=== PATIENT | male | born 1970 | race Caucasian/White ===

== ENCOUNTER 2025-01-20 09:21 | Emergency (ER) | payer BC ==
[2025-01-20 10:19] LABS: #Basophils 0.09 10x3/uL (0.0-0.2); #Eosinophils 0.26 10x3/uL (0.0-0.5); #Monocytes 1.09 10x3/uL (0.0-1.1); #Neutrophils 7.49 10x3/uL (1.5-8.4); %Basophils 0.8 % (0.0-2.0); %Eosinophils 2.4 % (0.0-6.0); %Lymphocytes 18.4 % (18.0-47.0); %Monocytes 9.9 % (0.0-10.0); %Neutrophils 68.0 % (40.0-75.0); Hematocrit 47.4 % (38.8-50.0); Hemoglobin 15.5 g/dL (13.5-17.5); Mean Corpuscular Hemoglobin 27.7 pg (27.0-33.0); Mean Corpuscular Volume 84.6 fL (81.2-95.1); Platelet Count 234 10x3/uL (150-450); Red Blood Cell (RBC) Count 5.60 10x6/uL (4.32-5.72); White Blood Cell (WBC) Count 11.01 10x3/uL (3.5-10.5)
[2025-01-20 10:38] LABS: Anion Gap 12 mmol/L (10-20); BUN (Urea Nitrogen) 31 mg/dL (8.4-25.7); Calc. Creatinine Clearance 0 mL/min (70-130); Calcium 9.3 mg/dL (7.8-10.44); Carbon Dioxide 26 mmol/L (22-29); Chloride 106 mmol/L (98-107); Glucose 106 mg/dL (70-105); Potassium 4.3 mmol/L (3.5-5.1); Sodium 140 mmol/L (136-145)
[2025-01-20] MEDS ORDERED: Enoxaparin 40 MG (0.4 mL) SYRINGE ONE (10:53)
[2025-01-20] MEDS ORDERED: Enoxaparin 100 MG (1 mL) SYRINGE ONE (10:53)
== END 2025-01-20 12:21 | disposition home or self-care (01) ==
LOC: CSHERS 09:21
DX: I82.412 Acute embolism and thrombosis of left femoral vein (principal); I82.432 Acute embolism and thrombosis of left popliteal vein; I10 Essential (primary) hypertension; Z55.6 Problems related to health literacy
CPT/HCPCS: 36415; 80048; 85025; 85379; 96372; J1650

== ENCOUNTER 2025-03-12 15:01 | Outpatient (CLI) | payer BC | END 2025-03-12 15:02 | disposition home or self-care (01) | LOC: CSHULT 15:01 | PROVIDERS: ATTEND Orthopaedic Surgery | DX: M79.605 Pain in left leg (principal); M79.89 Other specified soft tissue disorders; I82.412 Acute embolism and thrombosis of left femoral vein ==

== ENCOUNTER 2025-04-16 13:36 | Outpatient (CLI) | payer BC | END 2025-04-16 13:37 | disposition home or self-care (01) | LOC: CSHULT 13:36 | PROVIDERS: ATTEND Family Medicine | DX: I82.412 Acute embolism and thrombosis of left femoral vein (principal); I82.432 Acute embolism and thrombosis of left popliteal vein ==